=== PATIENT | male | born 1940 | race Caucasian/White ===

== ENCOUNTER → 2017-02-18 | Day surgery (SDC) | payer OTHER ==
[~2017-02-18] MED LIST: BUPIVACAINE HCL PF 0.75% 10 ML VIAL ONE; TRIAMCINOLONE ACETONIDE 40 MG/ML VIAL ONE
--- NOTE | 2017-02-18 08:35 | RADRPT ---
EXAM DATE/TIME: 02/18/2017 07:59 INDICATIONS : Left piriformis syndrome ACCESS LEVEL: LeftPiriformis muscle MEDICATION(S): 1.) 1 cc trimcinolone (Kenalog) IM 2.) 4 cc bupivacaine (Marcaine) IM DEVICE(S): 1.) 22 gauge Chiba needle MEDICAL HISTORY : Cardiovascular disease. SURGICAL HISTORY : None. ENCOUNTER: Initial ACUITY: 1 day PAIN SCORE: 0/10 LOCATION: Left hip PROCEDURE : CT guided steroid injection. The risks, benefits and alternatives to the procedure were explained and verbal and written consent w as obtained. The site was prepped in sterile fashion. Full sterile technique was used, including ca p, mask, sterile gloves and gown and a large sterile sheet. Hand hygiene and 2% chlorhexidine and/or betadine/alcohol prep was utilized per protocol for cutaneous antisepsis. The skin and subcutaneous tissues were infiltrated with local anesthetic solution. Using automated exposure control and adjus tment of the mA and/or kV according to patient size, radiation dose was kept as low as reasonably ach ievable to obtain optimal diagnostic quality images. DICOM format image data is available electronic ally for review and comparison. Appropriate area for injection was localized under CT guidance. The prescribed needle was placed maryjane n through the piriformis and a mixture of the prescribed dosage was instilled in and around the sciat ic nerve and piriformis. The patient was monitored for 20 minutes post procedure and left with reasonable symptomatic improvem ent. CONCLUSION: Uncomplicated CT guided steroid injection as above. Sumeet Peña MD on February 18, 2017 at 8:33 Board Certified Radiologist. This report was verified electronically.
== END | disposition home or self-care (01) ==
LOC: HRAD 06:46
PROVIDERS: ATTEND Orthopaedic Surgery Orthopaedic Surgery of the Spine
DX: M54.32 Sciatica, left side (principal)
CPT/HCPCS: 77012; 96372; J3301